=== PATIENT | male | born 1930 | race Caucasian/White ===

== ENCOUNTER 2016-08-06 18:30 | Emergency (ER) | payer MEDICARE, OTHER ==
[~2016-08-06] VITALS: Ht 172.7 cm; Wt 70.0 kg
[~2016-08-06 18:30] MED LIST: ACET325T11 GT; ACIDCAP17 GT; AMPI500C63 PO; CARB0.5D16 OU; COEN100C5 GT; DUONSOL2 NEB; ENOX40P SQ; METO25 GT; MVI5UDC GT; NEOS15T TOP; NYSTPOW30 TOP; OMEP20TA39 GT; POTA-243 GT; PROS5TAB2 GT; RANI150 GT; ROBA750T3 PO; SULF-154 PO; WATER PEG; [UNRECOGNIZED DRUG - CODE] GT; [UNRECOGNIZED DRUG - CODE] IJ; [UNRECOGNIZED DRUG - CODE] PO; [UNRECOGNIZED DRUG - OTHER] PEG
[2016-08-06 18:37] VITALS: BP 105/73
--- NOTE | 2016-08-06 18:52 | PD ---
HPI Chief Complaint: Science Writer Problem Time Seen by Provider: 18:52 Travel History International Travel<30 days: No Contact w/Intl Traveler<30days: No Traveled to known affect area: No History of Present Illness HPI 86-year-old male presents to the emergency department via EMS from home with his at bedside for evaluation of G-tube dislodgment. The states that the G-tube was pulled out somewhere between 3 and 5 this afternoon. 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 She states he is at his baseline at this point. She has no medical concerns other than G-tube placement. Patient is nonverbal. PFSH Past Medical History Arthritis: No Asthma: No Autoimmune Disease: No Blood Disorders: No Anxiety: No Depression: No Heart Rhythm Problems: No Cancer: No Cardiovascular Problems: Yes High Cholesterol: No Chemotherapy: No Chest Pain: No Congestive Heart Failure: No COPD: Yes Cerebrovascular Accident: No Diabetes: No Diminished Hearing: No Endocrine: No Gastrointestinal Disorders: Yes GERD: Yes Glaucoma: No Genitourinary: Yes Headaches: No Hepatitis: No Hiatal Hernia: No Heparin Induced Thrombocytopen: No Hypertension: Yes Immune Disorder: No Implanted Vascular Access Dvce: No Kidney Stones: No Musculoskeletal: Yes Neurologic: Yes (HX CLOSED HEAD INJURY) Psychiatric: No Reproductive: No Respiratory: No Migraines: Yes Myocardial Infarction: No Radiation Therapy: No Renal Failure: No Seizures: No Sickle Cell Disease: No Sleep Apnea: No Thyroid Disease: No Ulcer: No PNEUMOCCOCAL Vaccine (Year): 1 Past Surgical History Abdominal Surgery: Yes (APPENDECTOMY, HERNIA REPAIR) AICD: No Appendectomy: Yes Arteriovenous Shunt: No Body Medical Devices: pins in toes Cardiac Surgery: No Cholecystectomy: No Ear Surgery: No Endocrine Surgery: No Eye Surgery: No Genitourinary Surgery: Yes (G tube) Gynecologic Surgery: No Insulin Pump: No Joint Replacement: No Neurologic Surgery: No Oral Surgery: No Pacemaker: No Thoracic Surgery: No Other Surgery: Yes (PROSTATE BIOPSY) Social History Alcohol Use: No Tobacco Use: No Substance Use: No Allergies-Medications (Allergen,Severity, Reaction): Coded Allergies: Sulfa (Verified Allergy, Severe, 08/06/16) *MDRO Multi-Drug Resistant Organism (Verified Adverse Reaction, Unknown, ) 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 Robaxin (Methocarbamol) 750 Mg Tab 750 Mg G-TUBE BID Zantac (Ranitidine HCl) 150 Mg Tab 150 Mg G-TUBE BID Multivitamin Liq (Multiple Vitamins W/ Minerals Liq) 1 Liq Liq 10 Ml G-TUBE DAILY Co Q-10 (Coenzyme Q10 (Ubidecarenone)) 100 Mg Cap 100 Mg G-TUBE DAILY Probiotic (Lactobacillus Acidophilus) 1 Cap Cap 1 Cap G-TUBE TID Review of Systems Except as stated in HPI: all other systems reviewed are Neg Physical Exam Narrative GENERAL: Well-nourished, well-developed elderly male patient, afebrile. SKIN: Focused skin assessment warm/dry. HEAD: Normocephalic. EYES: No scleral icterus. No injection or drainage. NECK: Supple, trachea midline. No JVD or lymphadenopathy. CARDIOVASCULAR: Regular rate and rhythm without murmurs, gallops, or rubs. RESPIRATORY: Breath sounds equal bilaterally. No accessory muscle use. GASTROINTESTINAL: Abdomen soft, non-tender, nondistended. G tube is pulled out. has new G tube at bedside that her physician ordered for her. MUSCULOSKELETAL: No cyanosis, or edema. BACK: Nontender without obvious deformity. No CVA tenderness. Data Data Last Documented VS Vital Signs Date Time Temp Pulse Resp B/P Pulse Ox O2 Delivery O2 Flow Rate FiO2 08/06/16 19:29 68 18 105/78 96 Room Air Orders Abdomen, Single View (08/06/16 ) MDM Medical Decision Making Medical Screen Exam Complete: Yes Emergency Medical Condition: Yes Medical Record Reviewed: Yes Interpretation(s) abdomen x-ray - CONCLUSION: Injected G-tube shows contrast within the stomach without evidence for obstruction or leakage. Differential Diagnosis G tube dislodgement vs. medical clearance vs. medical services coordinator malfunction Narrative Course 86-year-old male presents to the emergency department for G-tube placement after his dislodged this afternoon. His is at bedside and states he is at his baseline. She has no medical concerns at this time. Patient's has a new G-tube at bedside. This was placed without difficulty. Abdomen x-ray is ordered and pending to confirm placement. Abdomen x-ray shows injected G-tube shows contrast within the stomach without evidence for obstruction or leakage. Patient will be discharged home. The patient was discharged in stable condition with instructions, including return instructions and follow up instructions. Diagnosis Primary Impression: Gastrostomy tube dysfunction Referrals: Primary Care Physician call for appointment Patient Instructions: General Instructions, How to Use and Care for Your PEG Tube (ED) Additional Instructions: Follow-up with your primary care physician. Return to the emergency department for any acute worsening of symptoms. Med/Other Pt SpecificInfo: No Change to Meds Disposition: 01 DISCHARGE HOME Condition: Stable Stevan,Christine RAMÍREZ August 06, 2016 18:52
[2016-08-06 19:29] VITALS: BP 105/78; PULSE 68; RESP 18; O2SAT 96
[2016-08-06] MEDS ORDERED: NEXI20GR G-TUBE (19:40)
[2016-08-06] MEDS ORDERED: FURO10SO G-TUBE (19:40)
[2016-08-06] MEDS ORDERED: ROBA750T G-TUBE (19:40)
[2016-08-06] MEDS ORDERED: ZANT150T2 G-TUBE (19:40)
[2016-08-06] MEDS ORDERED: POTA-243 G-TUBE (19:40)
[2016-08-06] MEDS ORDERED: MULTLIQ7 G-TUBE (19:40)
[2016-08-06] MEDS ORDERED: IPRASOL NEB (19:40)
[2016-08-06] MEDS ORDERED: COEN1CAP G-TUBE (19:40)
[2016-08-06] MEDS ORDERED: FINA5TAB2 G-TUBE (19:40)
[2016-08-06] MEDS ORDERED: LACTCAP8 G-TUBE (19:40)
--- NOTE | 2016-08-06 20:03 | RADRPT ---
EXAM DATE/TIME: 08/06/2016 19:06 [facility] COMPARISON: No previous studies available for comparison. INDICATIONS : G-tube placement. MEDICAL HISTORY : Gastroesophageal reflux disease. SURGICAL HISTORY : Appendectomy. Hernia repair, G-tube. ENCOUNTER: Initial ACUITY: 1 day PAIN SCORE: Non-responsive. LOCATION: abdomen. FINDINGS: Injection of G-tube reveals contrast within the stomach. No free air. CONCLUSION: Injected G-tube shows contrast within the stomach without evidence for obstruction or leakage. Jose Pineda MD on August 06, 2016 at 20:01 Board Certified Radiologist. This report was verified electronically.
[2016-08-06 20:13] VITALS: TEMP 97.4
[2016-08-07 07:12] VITALS: BP 107/68; PULSE 66; RESP 14; TEMP 97.5; O2SAT 92
== END 2016-08-07 07:54 | disposition home or self-care (01) ==
LOC: NEPC 18:30
DX: K94.23 Gastrostomy malfunction (principal); I10 Essential (primary) hypertension
CPT/HCPCS: 74000; 99284

== ENCOUNTER 2016-11-23 11:11 | Emergency (ER) | payer MEDICARE, OTHER ==
[~2016-11-23 11:11] MED LIST changes: -ACET325T11 GT; -ACIDCAP17 GT; -AMPI500C63 PO; -CARB0.5D16 OU; -COEN100C5 GT; +COEN1CAP G-TUBE; -DUONSOL2 NEB; -ENOX40P SQ; +FINA5TAB2 G-TUBE; +FURO10SO G-TUBE; +IPRASOL NEB; +LACTCAP8 G-TUBE; -METO25 GT; +MULTLIQ7 G-TUBE; -MVI5UDC GT; -NEOS15T TOP; +NEXI20GR G-TUBE; -NYSTPOW30 TOP; -OMEP20TA39 GT; +POTA-243 G-TUBE; -POTA-243 GT; -PROS5TAB2 GT; -RANI150 GT; +ROBA750T G-TUBE; -ROBA750T3 PO; -SULF-154 PO; -WATER PEG; +ZANT150T2 G-TUBE; -[UNRECOGNIZED DRUG - CODE] GT; -[UNRECOGNIZED DRUG - CODE] IJ; -[UNRECOGNIZED DRUG - CODE] PO; -[UNRECOGNIZED DRUG - OTHER] PEG
[2016-11-23 11:17] VITALS: BP 109/68; PULSE 72; RESP 20; TEMP 97.8
[2016-11-23] MEDS ORDERED: LACTCAP8 PO (11:22)
[2016-11-23] MEDS ORDERED: NEXI20CA PO (11:23)
[2016-11-23] MEDS ORDERED: AZIT200S PO ×2 (11:23)
--- NOTE | 2016-11-23 12:02 | PD ---
HPI Chief Complaint: Cold / Flu Symptoms Time Seen by Provider: 11:31 Travel History International Travel<30 days: No Contact w/Intl Traveler<30days: No Traveled to known affect area: No History of Present Illness HPI This 86-year-old male is brought for seeking care. He requires total care since he had a head injuries 7 years ago. He was originally in a residential but his took him out of the residential and has been caring for him at home with assistance. He has an indwelling Murguia and a gastrostomy tube. He is awake. He is cared for at home. His nurse practitioner saw him earlier in the week and started him on guaifenesin. He has been coughing and he added Zithromax because of some thick phlegm. The patient has had pneumonia in the past. He has also had pseudomonas sepsis due to his indwelling catheter. He has had a cough and congestion recently. PFSH Past Medical History Arthritis: No Asthma: No Autoimmune Disease: No Blood Disorders: No Anxiety: No Depression: No Heart Rhythm Problems: No Cancer: No Cardiovascular Problems: Yes High Cholesterol: No Chemotherapy: No Chest Pain: No Congestive Heart Failure: No COPD: Yes Cerebrovascular Accident: No Diabetes: No Diminished Hearing: No Endocrine: No Gastrointestinal Disorders: Yes GERD: Yes Glaucoma: No Genitourinary: Yes Headaches: No Hepatitis: No Hiatal Hernia: No Heparin Induced Thrombocytopen: No Hypertension: Yes Immune Disorder: No Implanted Vascular Access Dvce: No Kidney Stones: No Musculoskeletal: Yes Neurologic: Yes (HX CLOSED HEAD INJURY) Psychiatric: No Reproductive: No Respiratory: No Migraines: Yes Myocardial Infarction: No Radiation Therapy: No Renal Failure: No Seizures: No Sickle Cell Disease: No Sleep Apnea: No Thyroid Disease: No Ulcer: No PNEUMOCCOCAL Vaccine (Year): 1 Past Surgical History Abdominal Surgery: Yes (APPENDECTOMY, HERNIA REPAIR) AICD: No Appendectomy: Yes Arteriovenous Shunt: No Body Medical Devices: pins in toes Cardiac Surgery: No Cholecystectomy: No Ear Surgery: No Endocrine Surgery: No Eye Surgery: No Genitourinary Surgery: Yes (G tube) Gynecologic Surgery: No Insulin Pump: No Joint Replacement: No Neurologic Surgery: No Oral Surgery: No Pacemaker: No Thoracic Surgery: No Other Surgery: Yes (PROSTATE BIOPSY) Social History Alcohol Use: No Tobacco Use: No Substance Use: No Allergies-Medications (Allergen,Severity, Reaction): Coded Allergies: Sulfa (Sulfonamide Antibiotics) (Unverified Allergy, Severe, 11/23/16) *MDRO Multi-Drug Resistant Organism (Verified Adverse Reaction, Unknown, ) 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 Nexium (Esomeprazole DR) 20 Mg Capdr 20 Mg PO DAILY Probiotic (Lactobacillus Acidophilus) 10 Billion Cell Cap 1 Cap PO TIDAC Duoneb (Ipratropium-Albuterol Neb) 0.5-2.5 Mg/3 Ml Neb 3 Ml NEB Q6HR PRN Furosemide Liq (Furosemide) 10 Mg/Ml Soln 10 Mg G-TUBE DAILY Klor-Con 10 (Potassium Chloride) 10 Meq Tab 10 Meq G-TUBE DAILY Nexium (Esomeprazole) 20 Mg Pkt 20 Mg G-TUBE BID Finasteride 5 Mg Tab 5 Mg G-TUBE DAILY Do not crush. Robaxin (Methocarbamol) 750 Mg Tab 750 Mg G-TUBE BID Zantac (Ranitidine HCl) 150 Mg Tab 150 Mg G-TUBE BID Multivitamin Liq (Multiple Vitamins W/ Minerals Liq) 1 Liq Liq 10 Ml G-TUBE DAILY Co Q-10 (Coenzyme Q10 (Ubidecarenone)) 100 Mg Cap 100 Mg G-TUBE DAILY Probiotic (Lactobacillus Acidophilus) 1 Cap Cap 1 Cap G-TUBE TID Review of Systems ROS Limitations: Speech Impaired, Poor Historian General / Constitutional: No: Fever, Chills Eyes: No: Diploplia, Blurred Vision HENT: No: Headaches, Vertigo Cardiovascular: No: Chest Pain or Discomfort, Palpitations Respiratory: No: Shortness of Breath Gastrointestinal: No: Vomiting Genitourinary: No: Decreased Urinary Output Musculoskeletal: No: Myalgias Skin: No Rash Physical Exam Narrative GENERAL: Thin chronically ill male SKIN: Focused skin assessment warm/dry. HEAD: Atraumatic. Normocephalic. EYES: Pupils equal and round. No scleral icterus. No injection or drainage. ENT: No nasal bleeding or discharge. Mucous membranes pink and moist. NECK: Trachea midline. No JVD. CARDIOVASCULAR: Regular rate and rhythm. No murmur appreciated. RESPIRATORY: No accessory muscle use. Clear to auscultation. Breath sounds equal bilaterally. GASTROINTESTINAL: Abdomen soft, non-tender, nondistended. Hepatic and splenic margins not palpable. MUSCULOSKELETAL: No obvious deformities. No clubbing. No cyanosis. No edema. NEUROLOGICAL: Awake and alert. . No speech. Multiple contractures Data Data Last Documented VS Vital Signs Date Time Temp Pulse Resp B/P (MAP) Pulse Ox O2 Delivery O2 Flow Rate FiO2 11/23/16:17 97.8 72 20 109/68 (82) Orders Orders Complete Blood Count With Diff (11/23/16 11:56) Basic Metabolic Panel (Bmp) (11/23/16 11:56) Urinalysis - C+S If Indicated (11/23/16 11:56) Chest, Single Ap (11/23/16 11:56) Urine Culture (11/23/16 12:00) Labs Laboratory Tests Test 11/23/16 12:00 White Blood Count 6.3 TH/MM3 Red Blood Count 4.59 MIL/MM3 Hemoglobin 13.9 GM/DL Hematocrit 42.3 % Mean Corpuscular Volume 92.1 FL Mean Corpuscular Hemoglobin 30.3 PG Mean Corpuscular Hemoglobin Concent 32.9 % Red Cell Distribution Width 13.9 % Platelet Count 257 TH/MM3 Mean Platelet Volume 7.5 FL Neutrophils (%) (Auto) 61.1 % Lymphocytes (%) (Auto) 25.0 % Monocytes (%) (Auto) 10.0 % Eosinophils (%) (Auto) 0.4 % Basophils (%) (Auto) 3.5 % Neutrophils # (Auto) 3.9 TH/MM3 Lymphocytes # (Auto) 1.6 TH/MM3 Monocytes # (Auto) 0.6 TH/MM3 Eosinophils # (Auto) 0.0 TH/MM3 Basophils # (Auto) 0.2 TH/MM3 CBC Comment DIFF FINAL Differential Comment Urine Collection Type VOIDED Urine Color YELLOW Urine Turbidity TURBID Urine pH 8.5 Urine Specific Baker 1.009 Urine Protein TRACE mg/dL Urine Glucose (UA) NEG mg/dL Urine Ketones NEG mg/dL Urine Occult Blood LARGE Urine Nitrite POS Urine Bilirubin NEGATIVE Urine Leukocyte Esterase LARGE Urine RBC 0-3 /hpf Urine WBC INNUM /hpf Urine Squamous Epithelial Cells 0-5 /hpf Urine Triple Phosphate Crystals FEW /hpf Urine Bacteria MANY /hpf Microscopic Urinalysis Comment CULTURE INDICATED Blood Urea Nitrogen 22 MG/DL Creatinine 0.59 MG/DL Random Glucose 94 MG/DL Calcium Level 8.7 MG/DL Sodium Level 139 MEQ/L Potassium Level 3.9 MEQ/L Chloride Level 100 MEQ/L Carbon Dioxide Level 32.7 MEQ/L Anion Gap 6 MEQ/L Estimat Glomerular Filtration Rate 130 ML/MIN [facility] Medical Decision Making Medical Screen Exam Complete: Yes Emergency Medical Condition: Yes Medical Record Reviewed: Yes Differential Diagnosis Differential includes pneumonia, upper respiratory infection, Narrative Course X-rays negative for pneumonia. White count is normal. Urine does show a lot of white cells. I recommended to defer antibiotics at this time as the patient has had multiple resistant organisms and at this time is asymptomatic Diagnosis Primary Impression: Upper respiratory infection Qualified Codes: J06.9 - Acute upper respiratory infection, unspecified Disposition: 01 DISCHARGE HOME Condition: Stable Rashaun Duarte MD Nov 23, 2016 12:02
[2016-11-23 12:10] LABS: AUTOMATED NEUTROPHIL # 3.9 TH/MM3 (1.8-7.7); BASOPHIL # 0.2 TH/MM3 (0-0.2); BASOPHIL % 3.5 % (0.0-2.0); EOSINOPHIL % 0.4 % (0.0-4.0); HEMATOCRIT 42.3 % (39.0-51.0); HEMO FLAGS DIFF FINAL; LYMPHOCYTE # 1.6 TH/MM3 (1.0-4.8); MEAN CELL VOLUME 92.1 FL (80.0-100.0); MEAN CORPUSCULAR HEMOGLOBIN 30.3 PG (27.0-34.0); MEAN CORPUSCULAR HGB CONC 32.9 % (32.0-36.0); NEUT % 61.1 % (16.0-70.0); PLATELET COUNT 257 TH/MM3 (150-450); RED BLOOD COUNT 4.59 MIL/MM3 (4.50-5.90); RED CELL DISTRIBUTION WIDTH 13.9 % (11.6-17.2); WHITE BLOOD COUNT 6.3 TH/MM3 (4.0-11.0)
[2016-11-23 12:18] LABS: POTASSIUM 3.9 MEQ/L (3.5-5.1)
[2016-11-23 12:21] LABS: BICARBONATE 32.7 MEQ/L (21.0-32.0)
--- NOTE | 2016-11-23 12:24 | RADRPT ---
EXAM DATE/TIME: 11/23/2016 12:09 [facility] COMPARISON: CHEST SINGLE AP, June 06, 2013, 17:40. INDICATIONS : Cough MEDICAL HISTORY : Hypertension. SURGICAL HISTORY : None. ENCOUNTER: Initial ACUITY: 1 week PAIN SCORE: 0/10 LOCATION: Bilateral chest FINDINGS: A single view of the chest demonstrates the lungs to be symmetrically aerated without evidence of mas s, infiltrate or effusion. The cardiomediastinal contours are unremarkable. Osseous structures are intact. CONCLUSION: No acute disease. Ruy Allison MD FACR on November 23, 2016 at 12:22 Board Certified Radiologist. This report was verified electronically.
[2016-11-23 12:33] LABS: METHOD OF COLLECTION VOIDED; PH, URINE 8.5 (5.0-8.5); URINE COLOR YELLOW (YELLW/STRAW)
[2016-11-23 12:34] LABS: BLOOD, URINE LARGE (NEG); GLUCOSE,URINE NEG (NEG); KETONE, URINE NEG (NEG); NITRITE,URINE POS (NEG)
[2016-11-23 12:35] LABS: BACTERIA, URINE MANY /hpf; RBC, URINE 0-3 /hpf (0-3); SQUAMOUS EPITHELIAL CELL URINE 0-5 /hpf (0-5); WBC, URINE INNUM /hpf (0-5)
[2016-11-23 12:37] LABS: TRIPLE PHOSPHATE CRYSTAL,URINE FEW /hpf
[2016-11-23 12:38] LABS: COMMENT (UR) CULTURE INDICATED; CULTURE IF INDICATED CULTURE INDICATED
== END 2016-11-23 20:16 | disposition home or self-care (01) ==
LOC: PHED 11:11
DX: J06.9 Acute upper respiratory infection, unspecified (principal); B96.4 Proteus (mirabilis) (morganii) as the cause of diseases classified elsewhere
CPT/HCPCS: 71010; 80048; 81001; 85025; 87077; 87086; 87186; 99284